=== PATIENT | female | born 1995 | race African-American/Black ===

== ENCOUNTER 2023-03-23 18:31 | Emergency (ER) | payer MEDICAID, OTHER ==
[~2023-03-23] VITALS: Ht 167.6 cm; Wt 81.0 kg
[2023-03-23 18:55] VITALS: BP 113/68; PULSE 78; RESP 20; TEMP 98.3; O2SAT 100
[2023-03-23 19:29] LABS: CLARITY URINE TURBID (CLEAR); COLOR URINE YELLOW (YELLOW); GLUCOSE URINE NEGATIVE (NEGATIVE); KETONES URINE NEGATIVE (NEGATIVE); LEUKOCYTE ESTERASE URINE 2+ (NEGATIVE); NITRITE URINE NEGATIVE (NEGATIVE); OCCULT BLOOD URINE 3+ (NEGATIVE); PH URINE 5.5 (4.5-8.0); PROTEIN URINE 3+ (NEGATIVE); SPECIFIC GRAVITY URINE 1.033 (1.005-1.030)
[2023-03-23 19:43] LABS: BACTERIA URINE 2+; SQUAMOUS EPITHELIAL CELL URINE 1+ /lpf (RARE/1+)
[2023-03-23 19:44] LABS: RBC URINE 25-50 /hpf (0-2); WBC URINE 50-100 /hpf (0-2)
[2023-03-23] MEDS ORDERED: IBUPROFEN 600MG TABLET PO STA (22:23)
[2023-03-23] MEDS ORDERED: CEFTRIAXONE SODIUM 1 G/VIAL IM ONE (22:30)
[2023-03-23] MEDS ORDERED: LIDOCAINE HCL/PF 1% 10 MG/ML 5ML VIAL INFIL ONE (22:30)
[2023-03-23] MEDS ORDERED: PYR200 MT (22:44)
[2023-03-23] MEDS ORDERED: CLOT21CR4 VG (22:44)
[2023-03-23] MEDS ORDERED: CEPH500C2 MT (22:44)
[2023-03-23] MEDS ORDERED: SULF1TAB48 MT (22:44)
[2023-03-23] MEDS ORDERED: NAPR-681 MT (22:44)
== END 2023-03-23 23:17 | disposition home or self-care (01) ==
LOC: ER 18:48
DX: N61.1 Abscess of the breast and nipple (principal); R10.2 Pelvic and perineal pain; N39.0 Urinary tract infection, site not specified; N76.0 Acute vaginitis
CPT/HCPCS: 99283; 81003; 81025; 87086; 87186; 87077; 96372; J0696; J3490

== ENCOUNTER 2023-12-31 19:33 | Emergency (ER) | payer MEDICAID ==
[~2023-12-31] VITALS: Ht 175.3 cm; Wt 85.0 kg
[~2023-12-31 19:33] MED LIST: CEPH500C2 MT; CLOT21CR4 VG; NAPR-681 MT; PYR200 MT; SULF1TAB48 MT
[2023-12-31 19:47] VITALS: TEMP 98; O2SAT 100
[2023-12-31] MEDS: KETOROLAC 30MG/ML VIAL IM ONE (21:45)
[2023-12-31] MEDS ORDERED: IBUP-2028 MT (23:02)
[2023-12-31 23:49] VITALS: BP 109/67; PULSE 73; RESP 17
== END 2023-12-31 23:50 | disposition home or self-care (01) ==
LOC: ER 19:33
DX: R07.89 Other chest pain (principal)
CPT/HCPCS: 71045; 93005; 99283